=== PATIENT | male | born 1965 | race Two or more races ===

== ENCOUNTER 2016-09-12 08:41 | Day surgery (SDC) | payer OTHER ==
[~2016-09-12] VITALS: Ht 166.4 cm; Wt 102.1 kg
== END 2016-09-12 11:43 | disposition short-term general hospital (02) ==
LOC: SURGOP 08:41
PROC: 0DBE8ZZ Excision of Large Intestine, Via Natural or Artificial Opening Endoscopic (ICD-10-PCS; principal; 2016-09-12)
DX: Z12.11 Encounter for screening for malignant neoplasm of colon (principal); D12.6 Benign neoplasm of colon, unspecified; I10 Essential (primary) hypertension; E78.5 Hyperlipidemia, unspecified; E11.9 Type 2 diabetes mellitus without complications; Z79.899 Other long term (current) drug therapy; Z87.891 Personal history of nicotine dependence
CPT/HCPCS: J2175; J2250